=== PATIENT | female | born 1940 | race Caucasian/White ===

== ENCOUNTER 2018-09-04 11:03 | Observation (INO) ==
--- NOTE | 2018-09-04 12:38 | Pre Anesthesia Assessment ---
Date of Service September 04, 2018 Pre Sedation Assessment Vital Signs Temp Pulse Resp BP Pulse Ox 09/04/18 12:13 36.7 C 61 16 167/82 H 98 Cardiovascular RRR, no murmur, no edema Respiratory normal respiratory effort, lungs clear to auscultation Pre-Sedation Airway Assessment Smoking Status: Former smoker Hx Sleep Apnea: No Short, Thick Neck: No Thyromental Distance: > or= 3.5 Finger Breadths Oral Cavity: + Dentures Mallampati Class: III ASA: ASA3 NPO Status Date of Last Intake of Fluids: 09/03/18 Time of Last Intake of Fluids: 19:00 Date of Last Intake of Solid Food: 09/03/18 Time of Last Intake of Solid Foods: 19:00 Procedure Planning Contraindications for Sedation: none Current Medications Reviewed: Yes Notes The planned sedation has been discussed with the patient. Informed Consent was obtained. I have identified the patient, determined the appropriateness of sedation and have assessed the patient immediately prior to the procedure. All medicine(s) and interventions are by my order.
--- NOTE | 2018-09-04 12:38 | History & Physical Bridge Note ---
Date of Service September 04, 2018 History & Physical Bridge Note I have examined the patient, reviewed the History & Physical and in the interval since the performance of the History & Physical I have noted the following changes of clinical significance: no changes noted
[2018-09-04] MEDS ORDERED: fentaNYL citrate 100 MCG/2 ML VIAL ONE ×2 (12:47→13:55)
[2018-09-04] MEDS ORDERED: MIDAZOLAM HCL 5 MG/ML 1 ML VIAL ONE ×2 (12:47→13:54)
[2018-09-04] MEDS ORDERED: ISOPROTERENOL 200 MCG / 50ML D5W IV ONE (13:46)
[2018-09-04] MEDS ORDERED: AMIODARONE 150MG / 100ML D5W IV ONE (14:08)
[2018-09-04] MEDS ORDERED: NALOXONE HCL 0.4 MG/1 ML VIAL/CARP ONE (14:37)
[2018-09-04] MEDS ORDERED: ACETAMINOPHEN 325 MG TAB PO PRN (14:59)
--- NOTE | 2018-09-04 14:59 | Post Anesthesia Assessment ---
Date of Service September 04, 2018 Post Sedation Assessment Vital Signs Temp Pulse Resp BP Pulse Ox 09/04/18 12:13 36.7 C 61 16 167/82 H 98 Recovery Score Activity: Moves 4 extremities Respiration: Deep Breath/Cough Circulation: +/-20% PreAnes Value Consciousness: Fully Awake Oxygen Saturation: > 92% On Room Air Discharge Sedation Level of Care: Fast Track Phase II Post Sedation Plan On clinical assessment, the patient appears to have tolerated the sedation without complications. Patient is recovering as anticipated. Patient will continue to be monitored by nursing and may be discharged when sedation discharge criteria are met per below protocol. Upon Completions of procedure and additional 15 minutes continue every 5 minute vital signs and the P.A.R. score; then discharge to a Phase I or Fast Track to Phase II per the following guidelines: * Discharge Patient to appropriate Phase II area if PAR is 8 or greater or return to pre- procedure baseline. The post - procedure orders will be as directed. * If PAR score is less than 8 or not return to pre-procedure baseline then patient will follow Phase I monitoring till PAR is reached for Phase II. The Phase I may be done in procedure room or may call to secure a Phase I area. * If naloxone or flumazenil are used for reversal, hold in Phase I for continued monitoring from when last reversal dose was given for a minimum of 60 minutes or longer pending the nurse and/or physician discretion of patient condition before discharge to Phase II. Please call the Sedation Physician to re-evaluate and complete post-note for discharge to Phase II area. Do NOT discharge from procedure sedation or Phase 1 until post- sedation evaluation note is complete by procedure /sedation MD Sedation Discharge Instructions to be given to the patient at discharge to home.
--- NOTE | 2018-09-04 14:59 | Operative Report ---
Post Operative Report Pre & Post Diagnosis pSVT Operation Date: 09/04/18 13:00 <No data on this case meets the specified criteria> Procedure Operation Date: 09/04/18 13:00 Actual Procedures p EPS for SVT Flutter - Viviane Ramirez DO isoprel infusion synchronized Cardioversion x3 Dual chamber ppm interrogation and reprogramming - Viviane Ramirez DO Surgeon Viviane Ramirez, Gathering Machine Feeder none Estimated Blood Loss 5 Findings Consistent with Post-Op Diagnosis Specimens none Description of Procedure see official report I attest to the content of the Intraoperative Record and any orders documented therein. Any exceptions are noted below.
[2018-09-04] MEDS ORDERED: ONDANSETRON 4 MG TAB PO PRN (15:02)
[2018-09-04] MEDS ORDERED: DICYCLOMINE HCL 20 MG TAB PO PRN (15:02)
--- NOTE | 2018-09-04 15:13 | Discharge Summary ---
Date of Service September 04, 2018 Admission HPI Patient admitted for elective EPS with possible ablation due to SVT suggestive of AVNRT by a "mini" EPS through her pacemaker in the office last week. No ablation was performed due to equipment malfunction and the patient went into AF and required cardioversion and amiodarone infusion until breaking to sinus rhythm. The patient was monitored overnight and started on IV amiodarone infusion. Then discharged home in stable condition. Admission Exam Per Admitting Provider aaox3, NAD NC/AT, EOMI Supple No JVD Nrl S1/S2, No murmur CTA b/l no w/r/r soft nt/nd no LE edema b/l skin intact no focal deficits Principal Diagnosis Principal Diagnosis none Discharge Exam aaox3, NAD NC/AT, EOMI Supple No JVD Nrl S1/S2, No murmur CTA b/l no w/r/r soft nt/nd no LE edema b/l skin intact no focal deficits b/l groins soft no hematoma Discharge Data Allergies Allergy/AdvReac Type Severity Reaction Status Date / Time cefuroxime AdvReac Nausea Verified 09/04/18 12:25 Procedures Performed Operation Date: 09/04/18 13:00 Actual Procedures p EPS for SVT Flutter - Viviane Ramirez DO s Cardioversion - Viviane Ramirez, DO isoprel infusion dual chamber pacemaker interrogation and reprogramming Ordered Studies 09/04/18 06:45 EP Lab Images for PACS ONCE Hospital Course (1) PAF (paroxysmal atrial fibrillation): (2) AVNRT (AV juan re-entry tachycardia): (3) SSS (sick sinus syndrome): Total Time Total Time Spent Total Time Spent (In Minutes): 30 Total Time Includes: Examination of the Patient, Medication Reconciliation and Other Discharge Plan Discharge Items Patient Disposition: Home - Self-Care Reason For Visit: SUPRAVENTRICULAR TACHYCARDIA Discharge Diagnosis: pAF and Typical AVNRT Condition: Good Discharge Goals: Improve function Activity: As commented below Lifting: No more than 10 pounds Lifting Comment: do not lift more than 10 pounds for 1 week Bathing: No limitations Driving/Machine Use: Resume 1 day after discharge Non-emergency contact: Specialist Physician Call non-emergency contact if: you have any medication questions Follow-up/Referrals: Alma,Rachel, PA-C [Primary Care Provider] - Diet: Heart Healthy Addtl Provider Instructions: f/u with Dr. Ramirez as scheduled start amiodarone 200mg daily-this was sent to your pharmacy Prescriptions: New amiodarone 200 mg Tablet 200 mg PO QAM Qty: 30 RF: 0 Continued cyclobenzaprine 10 mg Tablet 5 mg PO HS RF: 0 metoprolol succinate [Toprol XL] 50 mg Tablet Extended Release 24 Hr 50 mg PO DAILY RF: 0 ondansetron HCl [Zofran] 4 mg Tablet 4 mg PO TID PRN (Reason: Nausea) RF: 0 dimenhydrinate [Dramamine] 50 mg Tablet 50 mg PO Q8H PRN (Reason: Nausea) RF: 0 lorazepam [Ativan] 0.5 mg Tablet 0.5 mg BUCCAL TID PRN (Reason: Anxiety) RF: 0 dicyclomine 20 mg Tablet 20 mg PO TID PRN (Reason: Abdominal Discomfort) RF: 0 warfarin 5 mg Tablet 7.5 mg PO Q OTHER DAY RF: 0 hydroxyzine HCl 25 mg Tablet 25 mg PO QID PRN (Reason: Itching) RF: 0 albuterol sulfate [Ventolin HFA] 90 mcg/actuation Hfa Aerosol Inhaler 2 puff INHALATION Q4 PRN (Reason: Wheezing) RF: 0 warfarin [Coumadin] 5 mg Tablet 5 mg PO Q OTHER DAY RF: 0 Stand-Alone Forms: [facility] Discharge Orders: Discharge Order (Routine); Ordered 09/05/18 Ordered By: Viviane Ramirez Admission Data Admit Date/Time: 09/04/18 14:39 Attending Provider: Viviane Ramirez Admit Provider: Viviane Ramirez Primary Care Provider: Rachel Marquez Service: Telemetry
[2018-09-04] MEDS ORDERED: ACETAMINOPHEN 325 MG TAB ONE (15:43)
[2018-09-04 16:30] LABS: Hematocrit (blood only) 36.3 % (37-47); Hemoglobin 12.4 g/dL (12.0-16.0); Mean Platelet Volume 9.3 fL (7.4-10.4); Platelet Count 128 K/uL (130-400); RDW Coefficient of Variation 12.9 % (11.5-14.5); RDW Standard Deviation 44.7 fL (36.4-46.3); Red Blood Count 3.82 M/uL (4.2-5.4); White Blood Count 3.41 K/uL (4.8-10.8)
[2018-09-04 16:32] LABS: Mean Corpuscular Hgb Conc 34.2 g/dL (32-36)
[2018-09-04 16:39] LABS: INR 1.9 (0.9-1.1); Prothrombin Time 18.4 Seconds (9.0-12.0)
[2018-09-04] MEDS: AMIODARONE / D5W 360 MG/200 ML BAG IV SCH (16:48)
[2018-09-04] MEDS ORDERED: WARFARIN SOD 7.5 MG TAB PO SCH (18:00)
[2018-09-04] MEDS ORDERED: CYCLOBENZAPRINE HCL 10 MG TAB PO SCH (21:00)
[2018-09-05] MEDS: AMIODARONE / D5W 360 MG/200 ML BAG IV SCH (03:53)
[2018-09-05 06:02] LABS: Prothrombin Time 19.6 Seconds (9.0-12.0)
[2018-09-05] MEDS ORDERED: METOPROLOL SUCC 50MG EXT REL TAB PO SCH (09:00)
[2018-09-05] MEDS ORDERED: AMIODARONE 200 MG TAB PO SCH (09:00)
[2018-09-05] MEDS ORDERED: WARFARIN SOD 5 MG TAB PO SCH (16:00)
--- NOTE | 2018-09-18 22:43 | Operative Report ---
DATE OF OPERATION: 09/04/2018 PREOPERATIVE DIAGNOSIS: Supraventricular tachycardia, presumed to be atrioventricular juan reentry tachycardia. POSTOPERATIVE DIAGNOSIS: Supraventricular tachycardia, presumed to be atrioventricular juan reentry tachycardia, as well as paroxysmal atrial fibrillation. PROCEDURE: Electrophysiology study, synchronized cardioversion x3, dual chamber rate responsive permanent pacemaker interrogation and reprogramming. SURGEON: Viviane Ramirez DO DOOR CLAMP OPERATOR: None. ANESTHESIA: Monitored conscious sedation administered under my supervision by Jhonatan Doan, start time 1304, end time 1446, a total of 9 mg of Versed, 200 mcg of fentanyl. INTRAVENOUS FLUIDS: 100 mL. ADDITIONAL MEDICINES: 0.4 of Narcan. BLOOD LOSS: Less than 5 mL. URINE OUTPUT: Not applicable. SPECIMENS: None. FINDINGS: See below. DRAINS: None. 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 On some of her pacemaker checks, she did have some paroxysmal atrial fibrillation, but most recently she presented to our office with symptomatic SVT. We did give some adenosine as well as did a mini EP study through her device in the office while she was in the tachycardia which was out of rate of 360 milliseconds. I was able to entrain her with ventricular pacing through the right ventricle pacing and the tachycardia continued with a VAV response, so is highly suggestive that she had AVNRT. So we recommended her to have an electrophysiology study with possible ablation. CONSENT: Consent was obtained prior to the patient going into the electrophysiology lab. The patient was informed of the risks, benefits, and alternatives of the procedure. Risks include but not limited to sudden cardiac , cardiac arrhythmias, cerebrovascular accident, myocardial infarction, injury to the blood vessels, heart chambers, or the [place] electrical system where she would permanently be dependent on her pacemaker, bleeding and infection. The patient understood these risks and agreed to the procedure as planned. Informed consent was obtained. DESCRIPTION OF PROCEDURE: The patient was brought into electrophysiology lab in a fasting state. The patient was connected to continuous groundwater monitoring technician. A timeout was performed to ensure patient's identity and procedure correctly. The patient was prepped and draped over the bilateral groins in a normal surgical standard fashion. Monitored conscious sedation was given throughout the procedure for patient's comfort level. [place] precautions were maintained throughout the suture. A 10 mL of 1% lidocaine were given in the bilateral groins. Then using modified Seldinger technique, venous access was obtained in the following manner. The left femoral vein had a 6-Gabonese sheath that was followed by a quadripolar Duyen catheter positioned in the right ventricular apex. A 7-Gabonese sheath followed by a Biosense DF curve Decapolar catheter was positioned down the coronary sinus. A 7-Gabonese sheath followed by a Hisser catheter positioned over HIS bundle. The right femoral vein had a 6-Gabonese sheath followed by a quadripolar catheter positioned in the high right atrium. With the catheters in position, an EP study was performed with the following findings: TX interval 222 milliseconds, QRS 122 milliseconds, QT 370 milliseconds, sinus cycle length 820 milliseconds, AH is 142 milliseconds, HV is 62 milliseconds, the AV Wenckebach was 450 milliseconds at 600/400, we saw echo beats. The fast pathway ERP was 500/400, the AV node ERP was 600/330 and 500/400. The atrial ERP was 600/270 and 500/240. Right ventricular ERP was 600/280 and 400/260. I was unable to induce any SVT up to triples, so I started 1 of ISO; however, she quickly went into atrial fibrillation when I was trying to induce on the ISO she went into AF, so I turned off the ISO. She still did not get out of the AFib, even tried burst ATP in her through my high right atrial catheter as well as through the pacemaker. So ultimately we sedated her some more and gave a 50 joule shock. She went into synchronized cardioversion at 50 joules. She went into sinus rhythm briefly, but back into the atrial fibrillation, so we sedated her a little bit more, gave another 50 joule shock and she went into sinus rhythm with a 1.8-second pause; however, shortly thereafter went back into the atrial fibrillation, so then I gave 150 mg bolus of amiodarone and once that was in, I cardioverted her synchronized cardioversion 1 more time and with she had a 6.3-second pause. I think there was a delay. The permanent pacemaker had some sensing issue during the shock, so that is why I did a pacer. At this juncture, I then found out that the 3D mapping Biosense equipment was not working appropriately and I would not even be able to map. Since I had induced AFib so much and even though I had high suspicions that the arrhythmia was AVNRT that I saw in the office, I opted not to ablate especially given the fact that the 3D mapping system was not working. So the catheters were all removed from the body. The sheaths were peeled and manual compression was used to establish hemostasis. Her pacemaker was interrogated and reprogrammed with the following findings. The right atrial lead: P waves are 2.9 millivolts, impedance 361 ohms, threshold 0.5 volts at 0.4 milliseconds. Right ventricular lead: R waves 3 millivolts, impedance 456 ohms, threshold 0.75 volts at 0.5 milliseconds. Her device was reprogrammed. We changed her atrial maximum limit impedance from 3000 ohms to 2000. Her RV amplitude was changed from 2 volts to 1.5 volts as well as her RV minimum adapted amplitude. Her RV sensitivity was changed from 0.9 millivolts to 1.20 millivolts. The RV lead monitor was changed from monitor only to adaptive. The RV max limit impedance was changed from 3000 ohms to 2000 ohms. Her paced AV delay was changed from 180 milliseconds to 200 milliseconds and her sensed AV delay was changed from 150 milliseconds to 170 milliseconds. Her PMT intervention was changed from off to on, her post-mode switch was changed from off to on. Her post-mode switch rate was turned to 80 beats per minute and her post-mode switch duration was changed to 5 minutes. IMPRESSION: Electrophysiology study performed. No ablation due to equipment malfunction, synchronized cardioversion x3 due to persistent atrial fibrillation and dual chamber pacemaker interrogation and reprogramming. PLAN: I will keep the patient overnight and start giving her amiodarone infusion overnight. Then we will start her on amiodarone 200 mg daily. We will let the Coumadin clinic know that she is starting on amiodarone and she will need closer monitoring and adjustments in her Coumadin. I will see her back in 1 month's time and we will repeat thyroid and liver functions and hopefully see how she is doing and she should continue with routine pacemaker checks. I attest to the content of the Intraoperative Record and any orders documented therein. Any exceptions are noted below. ELEAZAR
== END 2018-09-05 14:06 | disposition home or self-care (01) ==
LOC: 2E 11:03 → ASU 11:03